=== PATIENT | male | born 1945 | race Caucasian/White ===

== ENCOUNTER 2017-08-11 12:17 | Emergency (ER) | payer MEDICARE ==
[~2017-08-11] VITALS: Ht 180.3 cm; Wt 105.0 kg
[2017-08-11 12:24] VITALS: BP 143/78; PULSE 77; RESP 18; TEMP 99; O2SAT 96
[2017-08-11] MEDS ORDERED: METH8TAB3 PO (13:50)
[2017-08-11] MEDS ORDERED: LIPI20TA PO (13:50)
[2017-08-11] MEDS ORDERED: FLUT1SPR5 EACH NARE (13:56)
--- NOTE | 2017-08-11 14:18 | PD ---
HPI Chief Complaint: ENT Complaint Time Seen by Provider: 13:46 Travel History International Travel<30 days: No Contact w/Intl Traveler<30days: No Traveled to known affect area: No History of Present Illness HPI 72-year-old male presents for evaluation of left ear pressure and tinnitus. Symptoms started 5 days ago after a shower. He was seen 4 days ago and prescribed ofloxacin, Medrol Dosepak and azithromycin. Symptoms persist and that is what prompted evaluation today. He reports that he has had congestion for several months but denies any acute congestion. He denies any cough, recent travel, recent swimming. He has no other complaints at this time. [facility] Social History Alcohol Use: No Tobacco Use: No Allergies-Medications (Allergen,Severity, Reaction): Coded Allergies: No Known Allergies (Unverified , 08/11/17) Reported Meds & Prescriptions Reported Meds & Active Scripts Active Flonase Nasal [place] (Fluticasone Nasal [place]) 50 Mcg/Act [place] 100 Mcg EACH NARE BID Reported Methylprednisolone 8 Mg Tab 8 Mg PO DAILY Lipitor (Atorvastatin Calcium) 20 Mg Tab 25 Mg PO HS Review of Systems General / Constitutional: No: Fever, Chills HENT: Positive: Congestion, Earache, No: Ear Discharge Cardiovascular: No: Chest Pain or Discomfort Respiratory: No: Cough Physical Exam Narrative GENERAL: Well-developed well-nourished male in no acute distress SKIN: Warm and dry. HEAD: Atraumatic. Normocephalic. EYES: Pupils equal and round. No scleral icterus. No injection or drainage. ENT: No nasal bleeding or discharge. Mucous membranes pink and moist. Tympanic membrane's appear normal without erythema or fluid level. There is no foreign body debris in the external ear canals. NECK: Trachea midline. No JVD. CARDIOVASCULAR: Regular rate and rhythm. No murmur appreciated. RESPIRATORY: No accessory muscle use. Clear to auscultation. Breath sounds equal bilaterally. Data Data Last Documented VS Vital Signs Date Time Temp Pulse Resp B/P (MAP) Pulse Ox O2 Delivery O2 Flow Rate FiO2 08/11/17 12:24 99.0 77 18 143/78 (99) 96 MDM Medical Decision Making Medical Screen Exam Complete: Yes Emergency Medical Condition: Yes Medical Record Reviewed: Yes Differential Diagnosis Sensorineural hearing loss versus conductive hearing loss- cerumen impaction, serous otitis media, perforation, suppurative otitis media Narrative Course Physical examination is unremarkable. At this point in time the plan will be to discharge the patient with Flonase for his rhinitis. the patient reports that he has an appointment with an ENT physician in 4 days, he is stable for discharge. Diagnosis Primary Impression: Hearing loss in left ear Additional Instructions: Follow-up with ENT in 4 days as scheduled. Flonase as prescribed. Return for any emergent medical conditions. Med/Other Pt SpecificInfo: Prescription(s) given Scripts Fluticasone Nasal [place] (Flonase Nasal [place]) 50 Mcg/Act [place] 100 MCG EACH NARE BID for Allergies, #1 BOTTLE 0 Refills Prov: Anjum Graham MD 08/11/17 Disposition: 01 DISCHARGE HOME Condition: Stable Jadon Bell Aug 11, 2017 14:18
== END 2017-08-11 14:52 | disposition home or self-care (01) ==
LOC: NEPD 12:17
DX: H91.92 Unspecified hearing loss, left ear (principal)
CPT/HCPCS: 99283